=== PATIENT | female | born 1990 | race Caucasian/White ===

== ENCOUNTER 2016-11-27 22:57 | Emergency (ER) | payer BC ==
[~2016-11-27] VITALS: Ht 162.6 cm; Wt 69.4 kg
[2016-11-27 22:59] VITALS: TEMP 37; Ht 162.6 cm; Wt 69.4 kg
[2016-11-27] MEDS ORDERED: BCPILLS PO (23:17)
[2016-11-27] MEDS ORDERED: IBUP-1050 PO (23:18)
--- NOTE | 2016-11-28 00:02 | EMERGENCY ROOM VISIT NOTE ---
History Report prepared by Jeana: Pippa Lopez Under the Supervision of: Dr. Dinesh Sanchez D.O. First contact with patient: 23:03 Chief Complaint: NECK INJURY Stated Complaint: NECK PAIN, MCGOVERN, GYMNASTIC INJURY History of Present Illness The patient is a 26 year old female who presents to the Emergency Room with complaints of an episode of neck injury following a gymnastics class injury that occurred this evening. She rates her pain as a 7/10. The patient was performing a cloth bleaching range back tender spring in gymnastics class. She landed on her head instead of on her hands. The patient describes that she then heard a "crunching " sound. She states that she can tilt side to side but that she has some pain when she tilts her head back. The patient now has a headache. She does not have back pain currently. For the pain, the patient took three Advil 30 minutes ago. The patient denies loss of consciousness, a chance of . The patient states that she is currently on her period. Source of History: patient Onset: this evening Position: neck Symptom Intensity: 7/10 Quality: other (neck pain) Timing: other (episode) Associated Symptoms: + headache, No LOC Review of Systems See HPI for pertinent positives & negatives. A total of 10 systems reviewed and were otherwise negative. Past Medical & Surgical Medical Problems: (1) Asthma Family History No pertinent family history Social History Smoking Status: Never Smoker Alcohol Use: none Drug Use: none Housing Status: lives with family Current/Historical Medications Scheduled Control Pills ( Control Pills), 1 TAB PO DAILY Scheduled PRN Ibuprofen (Advil), 200-600 MG PO Q4H PRN for Pain or Fever Allergies Coded Allergies: No Known Allergies (Unverified , 11/27/16) Physical Exam Vital Signs Date Time Temp Pulse Resp B/P Pulse Ox O2 Delivery O2 Flow Rate FiO2 11/28/16 00:25 66 20 118/72 99 11/27/16 22:59 37.0 79 20 141/100 99 Room Air Physical Exam GENERAL: Patient is awake, alert, and in no acute distress. Patient is resting comfortably and showing no signs of anxiety EYES: The conjunctivae are clear. The pupils are round and reactive. EARS, NOSE, MOUTH AND THROAT: The nose is without any evidence of any deformity. Mucous membranes are moist tongue is midline NECK: There was midline and upper midline cervical spine tenderness to palpation , range of motion was deferred until radiographic studies could be reviewed, no pain with axial compression RESPIRATORY: Normal respiratory effort is noted there is no evidence of wheezing rhonchi or rales CARDIOVASCULAR: Regular rate and rhythm noted there no murmurs rubs or gallops normal S1 normal S2 GASTROINTESTINAL: The abdomen is soft. Bowel sounds are present in all quadrants. Abdomen is nontender BACK: No midline tenderness or or step-off noted range of motion in flexion extension as well as rotation no signs of muscle spasm noted MUSCULOSKELETAL/EXTREMITIES: There is no evidence of gross deformity full range of motion is noted in the hips and shoulders SKIN: There is no obvious evidence of any rash. There are no petechiae, pallor or cyanosis noted. NEUROLOGIC: Patient is awake alert and oriented x3 strength is symmetric patellar reflexes are 2+ bilaterally Medical Decision & Procedures ER Provider Diagnostic Interpretation: X-ray results as stated below per interpretation by me. CT results as stated below per my review and radiologist interpretation. Plain x-rays of the lumbar spine: These reveal no malalignment, no compression fracture, no acute disease. CT the head and cervical spine was obtained in the emergency department. The report was reviewed. Preliminary Findings Only See Final Report For Complete Findings CT HEAD: No evidence of acute intracranial abnormality. CT C SPINE: No acute fracture or traumatic subluxation of the cervical spine. Straightening of the cervical spine which may be related to positioning or muscle spasm. Small disc bulge at C5-6 with mild associated spinal canal narrowing. No evidence of significant neural foraminal stenosis. Radiologist: Cookie Brown MD Study ready at 23:38 and initial results transmitted at 00:01 ED Course 2304: The patient was evaluated in room B. A complete history and physical examination were performed. 0010: Upon reevaluation, the patient is doing well. I discussed the results and treatment plan with the patient. She verbalized agreement of the treatment plan. The patient was discharged home. Medical Decision Differential diagnosis: Etiologies such as fracture, dislocation, intra-abdominal, pneumothorax, intrathoracic , intracranial, neurologic, as well as other traumatic pathologies were entertained. Nursing notes reviewed. The patient is a 26-year-old female who presented to emergency department after a head neck injury. The patient was doing a back spring which is a gymnastics maneuver where she fell backwards putting and axial compression load onto her head into her neck. She also has lumbar spine tenderness. She has no focal neurologic deficit. Gait was normal. The patient's x-rays and CTs did not reveal any acute traumatic injury. The patient did have signs of possible disc protrusion on CT. She was encouraged to rest and avoid any strenuous activity. She was offered pain medication but declined. She was encouraged to continue using Motrin and Tylenol stretcher for pain and follow-up with her primary care physician to discuss the possibility of further studies such as MRI the cervical spine if symptoms do not improve. Otherwise she was encouraged to return to the emergency apartment immediately if symptoms change worsen or the need arises. Impression Primary Impression: Head injury Additional Impressions: Cervical strain Lumbar strain Scribe Attestation The scribe's documentation has been prepared under my direction and personally reviewed by me in its entirety. I confirm that the note above accurately reflects all work, treatment, procedures, and medical decision making performed by me. Departure Information Dispostion Home / Self-Care Referrals No Doctor, Assigned (PCP) Forms HOME CARE DOCUMENTATION FORM, IMPORTANT VISIT INFORMATION, WORK / SCHOOL INSTRUCTIONS Patient Instructions My [facility], Neck Cervical Spine Additional Instructions Family in the morning to schedule a follow-up appointment. Rest and avoid any strenuous activity. Discussed the possibility with your family doctor the may require further studies such as an MRI of the cervical spine to further evaluate any ongoing pain. Continue using Motrin and Tylenol for pain. Problem Qualifiers
[2016-11-28 00:25] VITALS: BP 118/72; PULSE 66; O2SAT 99
--- NOTE | 2016-11-28 06:11 | DIAGNOSTIC IMAGING REPORT ---
HEAD CT NONCONTRAST CT DOSE: HISTORY: Trauma injury TECHNIQUE: Multiaxial CT images of the head were performed without the use of intravenous contrast. Comparison: None. Findings: The paranasal sinuses and mastoid air cells are clear. The calvarium and skull base are intact. The ventricles and sulci are within normal limits. There is no mass, hematoma, midline shift, or acute infarct. Impression: No acute intracranial abnormality. Electronically signed by: Woody Guajardo M.D. 11/28/2016 6:09 AM Dictated Date/Time: 11/28/2016 6:09 AM
--- NOTE | 2016-11-28 06:23 | DIAGNOSTIC IMAGING REPORT ---
LUMBAR SPINE 5 VIEWS HISTORY: Trauma. Pain. fall COMPARISON: None. FINDINGS: There is no fracture. No subluxation. Disc spaces are preserved. IMPRESSION: No fracture or subluxation within the lumbar spine. Electronically signed by: Woody Guajardo M.D. 11/28/2016 6:22 AM Dictated Date/Time: 11/28/2016 6:17 AM
--- NOTE | 2016-11-28 07:22 | DIAGNOSTIC IMAGING REPORT ---
CERVICAL SPINE CT CT DOSE: 934.18 mGy.cm HISTORY: Pain with neck injury TECHNIQUE: Multiaxial CT images of the cervical spine were performed and reformatted in the sagittal and coronal plane without the use of contrast. COMPARISON: None. FINDINGS: No fractures. No subluxation. Prevertebral soft tissues and the C1-C2 interval are intact. No pneumothorax. Small disc bulges at C4-C5 and C5-C6. Straightening of the cervical spine. IMPRESSION: No fractures within the cervical spine. Electronically signed by: Luisito Lao M.D. 11/28/2016 7:21 AM Dictated Date/Time: 11/28/2016 7:17 AM
== END 2016-11-28 00:26 | disposition home or self-care (01) ==
LOC: C.EDB 22:59
DX: S16.1XXA Strain of muscle, fascia and tendon at neck level, initial encounter (principal); J45.909 Unspecified asthma, uncomplicated; X58.XXXA Exposure to other specified factors, initial encounter; Y93.43 Activity, gymnastics; Y99.8 Other external cause status

== ENCOUNTER 2018-03-19 02:49 | Inpatient (IN) | payer OTHER ==
[~2018-03-19] VITALS: Ht 165.1 cm; Wt 72.0 kg
[~2018-03-19 02:49] MED LIST: BCPILLS PO; IBUP-1050 PO
[2018-03-19] MEDS ORDERED: LACTATED RINGER'S 1000ML 1,000 ML IV PRN (03:17)
[2018-03-19 04:15] LABS: HEMATOCRIT 34.9 % (37-47); HEMOGLOBIN 11.8 g/dL (12.0-16.0); MEAN CELL VOLUME 84.5 fL (80-100); MEAN CORPUSCULAR HEMOGLOBIN 28.6 pg (25-34); MEAN CORPUSCULAR HGB CONC 33.8 g/dl (32-36); MEAN PLATELET VOLUME 10.2 fL (7.4-10.4); PLATELET COUNT 234 K/uL (130-400); RED CELL DISTRIBUTION WIDTH CV 13.3 % (11.5-14.5); RED CELL DISTRIBUTION WIDTH SD 40.4 fL (36.4-46.3); WHITE BLOOD COUNT 9.86 K/uL (4.8-10.8)
[2018-03-19] MEDS ORDERED: PRENTAB26 PO (04:35)
[2018-03-19 04:47] VITALS: Ht 165.1 cm; Wt 72.0 kg
[2018-03-19] MEDS ORDERED: BUTORPHANOL TARTRATE 1 MG/ML VIAL IV PRN (07:30)
--- NOTE | 2018-03-19 07:32 | HISTORY & PHYSICAL EXAMINATION ---
DATE OF ADMISSION: 03/19/2018 HISTORY OF PRESENT ILLNESS: The patient is a 28-year-old G1, P0, due date 04/01/2018, making her 38 weeks and 1 day today, who presented to labor and delivery with grossly spontaneous rupture of membranes, fluid was clear. The patient is therefore being admitted for anticipation of delivery. COURSE: Has been unremarkable. LABORATORIES: The patient is rubella immune, HIV negative, GBS negative. RPR nonreactive. PAST MEDICAL HISTORY: 1. Varicella without complication. 2. Exercise-induced asthma. 3. Seasonal allergies. 4. Alopecia. PAST SURGICAL HISTORY: 1. The patient has had dental surgery in the past. 2. Breast reduction. 3. Colonoscopy. ALLERGIES: No known drug allergies. MEDICATIONS: The patient is on vitamins. PHYSICAL EXAMINATION: GENERAL: Well-developed, well-nourished white female, in labor discomfort. HEART: S1, S2, regular rhythm and rate. LUNGS: Clear to auscultation bilaterally. ABDOMEN: Gravid. heart rate is category 1. PELVIC: On admission is 3-4 cm, 50% effaced, and -2. EXTREMITIES: No cyanosis, clubbing or edema. ASSESSMENT AND PLAN: A 28-year-old G1, P0 at 38 weeks and 1, term, premature rupture of membranes. The patient is grossly ruptured. Pelvic ultrasound done at bedside shows cephalic presentation. The patient is GBS negative. The patient is admitted and plan is to expect vaginal delivery. MTDD
[2018-03-19] MEDS ORDERED: FENTANYL CITRATE INJ 50 MCG/1 ML 2 ML VIAL ONE (08:21)
[2018-03-19] MEDS ORDERED: EpHEDrine SULFATE INJ 50 MG/ML AMP ONE (08:21)
[2018-03-19] MEDS ORDERED: BUPIVACAINE 0.25% 30 ML VIAL ONE (08:21)
[2018-03-19] MEDS ORDERED: FENTANYL 2MCG/ML ROPIV 1.25MG/ML 100ML BAG ONE (08:22)
[2018-03-19] MEDS ORDERED: LACTATED RINGER'S 1000ML 500 ML IV PRN ×2 (08:48→10:26)
[2018-03-19] MEDS ORDERED: NALOXONE HCL INJ 1 MG in SODIUM CHLORIDE 0.9% 1000ML 1,000 ML IV PRN (08:48)
[2018-03-19] MEDS: LACTATED RINGER'S 1000ML 1,000 ML IV SCH ×2 (08:58→16:07)
[2018-03-19] MEDS ORDERED: NALBUPHINE HCL INJ 10 MG/ML AMP IV PRN (09:00)
[2018-03-19] MEDS ORDERED: FENTANYL 2MCG/ML ROPIV 1.25MG/ML 100ML BAG EPI PRN (09:00)
[2018-03-19] MEDS ORDERED: DiphenhydrAMINE HCL 50 MG/ML VIAL IV PRN (09:00)
[2018-03-19] MEDS ORDERED: NALOXONE HCL INJ 0.4 MG/1 ML VIAL/CARP IV PRN (09:00)
[2018-03-19] MEDS ORDERED: ONDANSETRON INJ 2 MG/ML 2 ML VIAL IV PRN (09:00)
[2018-03-19] MEDS: EpHEDrine SULFATE INJ 50 MG/ML AMP IV PRN ×2 (09:29→09:38)
[2018-03-19] MEDS ORDERED: OXYTOCIN 30 UNITS/500ML NSS IV PRN ×2 (10:30→19:00)
[2018-03-19] MEDS ORDERED: CEFAZOLIN IV 2,000 MG in DEXTROSE 5% 50ML 50 ML IV STA (17:01)
[2018-03-19] MEDS: CEFAZOLIN IV 2,000 MG in SYRINGE 0 ML IV SCH (17:19)
[2018-03-19] MEDS ORDERED: LACTATED RINGER'S 1000ML 1,000 ML IV SCH (18:51)
[2018-03-19] MEDS ORDERED: SUPERCREAM 0.870 % 15GM JAR EXT PRN (19:00)
[2018-03-19] MEDS ORDERED: MEASLES, MUMPS & RUBELLA VIRUS VIAL SQ. ONE (19:00)
[2018-03-19] MEDS ORDERED: OXYCODONE/ACETAMINOPHEN 5-325 TAB PO PRN ×2 (19:00→22:30)
[2018-03-19] MEDS ORDERED: BENZOCAINE 20% AER SPR 82.5 GM CAN EXT PRN (19:00)
[2018-03-19] MEDS ORDERED: DIPHTHERIA/TETANUS/PERTUSSIS 0.5 ML SYR/VIAL IM. ONE (19:00)
[2018-03-19] MEDS ORDERED: LANOLIN OINT EXT PRN (19:00)
[2018-03-19] MEDS ORDERED: HYDROCORTISONE ACETATE 25 MG SUPP PR PRN (19:00)
[2018-03-19] MEDS ORDERED: ACETAMINOPHEN 325 MG TAB PO PRN (19:00)
--- NOTE | 2018-03-19 19:03 | Anesthesia Procedure Note ---
Anesthesia Epidural Removal Nt Date & Time March 19, 2018 at 19:03 Vital Signs Pain Intensity: 1.0 Notes Mental Status: alert / awake / arousable, participated in evaluation Nausea / Vomiting: adequately controlled Pain: adequately controlled Airway Patency, RR, SpO2: stable & adequate BP & HR: stable & adequate Hydration State: stable & adequate Neuraxial Anesthesia: was administered Anesthetic Complications: no major complications apparent, pt satisfied with anesthetic care Epidural: removed without complications, with tip intact
--- NOTE | 2018-03-19 21:04 | DELIVERY SUMMARY ---
DATE OF OPERATION: 03/19/2018 DATE OF DELIVERY: 03/19/2018. TIME OF DELIVERY OF BABY: 18:16 p.m. TIME OF DELIVERY OF PLACENTA: 18:34 p.m. DETAILS OF DELIVERY: Patient was found to be fully dilated and desired to push. She pushed for about 2 hours and delivered the head without difficulty. Shoulders were delivered with minimal traction. Baby was handed off to the mother where mouth and nose were suctioned. Cord was clamped x2 and cut at 1-minute delay. It was 3 vessels cord and cord blood was obtained. Then the perineum and vagina were checked for lacerations. There was a second-degree vaginal laceration in the posterior vagina involving the perineum. Rectal exam was done, good sphincter tone was noted and gloves were changed. It was confirmed to be a second-degree laceration. The perineal body muscles around the sphincter muscles were held with Allis clamps and reinforced with [id number]-[id number] stitches x2. Then with different 2-0 Vicryl, the vaginal mucosa was repaired in a continuous fashion and the skin in the subcuticular fashion and then rectal exam was done. Excellent sphincter tone was noted and no sutures were felt. Then the placenta was found to be in the vagina, delivered spontaneously intact and complete. Uterus was explored and found to be empty. Lower segment was cleared off all clots and debris. EBL was 300 mL. Pitocin infusion was started and then the vagina and perineum checked again and there was oozing in the middle of the repair in the posterior vagina. It was repaired with qauoop-lo-qajmp stitches x3 and there was a small vaginal laceration on the right vaginal lower wall which was repaired with 3-0 Vicryl with jawuqr-[id number]-nxfaa stitches x3. An excellent hemostasis was achieved. Mom and baby tolerated the procedure well. Baby was a viable male infant, Apgars 8/9, weight was 3636 gr. No complications happened and I was present during the whole procedure. At the end of the procedure, sponge, lap, needle and instrument counts were correct x2. I attest to the content of the Intraoperative Record and any orders documented therein. Any exceptions are noted below. PADDYD
[2018-03-19 21:45] VITALS: BP 104/69; PULSE 83; TEMP 36.9
[2018-03-19] MEDS: IBUPROFEN 600 MG TAB PO PRN (22:33)
[2018-03-20 00:30] VITALS: BP 114/69; PULSE 89; TEMP 36.7
[2018-03-20] MEDS: CEFAZOLIN IV 2,000 MG in SYRINGE 0 ML IV SCH (01:55)
[2018-03-20] MEDS ORDERED: NURSING VERBAL MED ORDER ONE (02:30)
[2018-03-20 05:00] VITALS: BP 96/58; PULSE 81; TEMP 36.8
[2018-03-20] MEDS: IBUPROFEN 600 MG TAB PO PRN ×4 (07:40→23:51)
[2018-03-20 08:00] VITALS: BP 94/63; PULSE 86; TEMP 36.7; O2SAT 98
[2018-03-20] MEDS: DOCUSATE SODIUM 100 MG CAP PO SCH ×3 (08:24→19:53)
[2018-03-20] MEDS: FERROUS SULFATE 325 MG TAB PO SCH (08:25)
[2018-03-20] MEDS: PRENATAL VITAMIN TAB PO SCH (08:25)
--- NOTE | 2018-03-20 10:39 | OB/GYN Progress Note ---
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 Subjective conversation w/ patient, physical exam Ambulation: ambulating normally Voiding: no voiding problems Passing Gas: Yes Diet Tolerance: Regular Diet Lochia: Moderate Feeding Type: Breast Feeding Review of Systems Constitutional: No fever, No chills, No sweats, No weight loss, No weakness, No fatigue, No problem reported Respiratory: No cough, No sputum, No wheezing, No shortness of breath, No dyspnea on exertion, No dyspnea at rest, No hemoptysis, No problem reported Cardiac: No chest pain, No orthopnea, No PND, No edema, No claudication, No palpitations, No problem reported Breast: No see HPI, No breast lump, No change in shape, No nipple discharge, No breast pain, No problem reported Abdomen: No pain, No nausea, No vomiting, No diarrhea, No constipation, No GI bleeding, No problem reported Female : No see HPI, No dysuria, No urinary frequency, No hematuria, No incontinence, No abnormal vaginal bleeding, No vaginal discharge, No problem reported Objective Vital Signs Date Time Temp Pulse Resp B/P (MAP) Pulse Ox O2 Delivery O2 Flow Rate FiO2 03/20/18 08:00 36.7 86 18 94/63 (73) 98 Room Air 03/20/18 07:30 Room Air 03/20/18 05:00 36.8 81 18 96/58 (71) Room Air 03/20/18 00:30 36.7 89 18 114/69 (84) Room Air 03/20/18 00:30 Room Air 03/19/18 21:45 36.9 83 18 104/69 (81) Room Air 03/19/18 21:45 Room Air Physical Exam General Appearance: WELL-APPEARING, WD/WN, NO APPARENT DISTRESS Respiratory/Chest: chest non-tender, lungs clear, normal breath sounds Cardiovascular: regular rate, rhythm, no edema, no gallop Abdomen: normal bowel sounds, non tender Fundus: Firm Incision Description: Clean, Dry & Intact Extremities: normal range of motion, non-tender, normal inspection Laboratory Results Last 24 Hours Test 03/20/18 06:53 Hemoglobin 9.0 g/dL Hematocrit 27.0 % Assessment and Plan Continue Routine Care: Post op day #1 doing well No complaints anticipate disch tomorrow
[2018-03-20 12:00] VITALS: BP 112/79; PULSE 89; TEMP 36.7
[2018-03-20 16:20] VITALS: BP 104/69; PULSE 70; TEMP 36.7
[2018-03-20] MEDS ORDERED: BISACODYL 5 MG TABEC PO SCH (20:00)
[2018-03-20 23:20] VITALS: BP 99/65; PULSE 71; TEMP 36.8; O2SAT 98
[2018-03-21 03:10] VITALS: BP 103/76; PULSE 76; TEMP 36.9
[2018-03-21 05:45] LABS: HEMATOCRIT 26.2 % (37-47); HEMOGLOBIN 8.5 g/dL (12.0-16.0); MEAN CELL VOLUME 86.8 fL (80-100); MEAN CORPUSCULAR HEMOGLOBIN 28.1 pg (25-34); MEAN CORPUSCULAR HGB CONC 32.4 g/dl (32-36); MEAN PLATELET VOLUME 10.4 fL (7.4-10.4); PLATELET COUNT 196 K/uL (130-400); RED CELL DISTRIBUTION WIDTH CV 13.8 % (11.5-14.5); RED CELL DISTRIBUTION WIDTH SD 43.8 fL (36.4-46.3); WHITE BLOOD COUNT 10.67 K/uL (4.8-10.8)
[2018-03-21] MEDS: DOCUSATE SODIUM 100 MG CAP PO SCH (08:27)
[2018-03-21] MEDS: IBUPROFEN 600 MG TAB PO PRN (08:28)
[2018-03-21] MEDS: FERROUS SULFATE 325 MG TAB PO SCH (08:28)
[2018-03-21] MEDS: PRENATAL VITAMIN TAB PO SCH (08:28)
[2018-03-21 08:30] VITALS: BP 99/65; PULSE 72; TEMP 36.6; O2SAT 97
[2018-03-21] MEDS ORDERED: MTR600X PO (08:54)
[2018-03-21] MEDS ORDERED: MISC-1040 (09:36)
--- NOTE | 2018-03-21 09:37 | OB/GYN Progress Note ---
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 Subjective conversation w/ patient, conversation w/ family, physical exam Ambulation: ambulating normally Passing Gas: Yes Diet Tolerance: Regular Diet Lochia: Small Feeding Type: Breast Feeding Objective Vital Signs Date Time Temp Pulse Resp B/P (MAP) Pulse Ox O2 Delivery O2 Flow Rate FiO2 03/21/18 03:10 36.9 76 18 103/76 (85) Room Air 03/20/18 23:20 98 Room Air 03/20/18 23:20 36.8 71 18 99/65 (76) 98 Room Air 03/20/18 16:20 Room Air 03/20/18 16:20 36.7 70 18 104/69 (81) Room Air 03/20/18 12:00 36.7 89 18 112/79 (90) Room Air Physical Exam General Appearance: WELL-APPEARING, NO APPARENT DISTRESS Abdomen: normal bowel sounds, non tender, soft, no organomegaly Fundus: Firm Extremities: non-tender, normal inspection Laboratory Results Last 24 Hours Test 03/21/18 05:23 White Blood Count 10.67 K/uL Red Blood Count 3.02 M/uL Hemoglobin 8.5 g/dL Hematocrit 26.2 % Mean Corpuscular Volume 86.8 fL Mean Corpuscular Hemoglobin 28.1 pg Mean Corpuscular Hemoglobin Concent 32.4 g/dl RDW Standard Deviation 43.8 fL RDW Coefficient of Variation 13.8 % Platelet Count 196 K/uL Mean Platelet Volume 10.4 fL Assessment and Plan Post- Day Number: 2 Continue Routine Care: discharged
[2018-03-21 12:50] VITALS: BP_DIAS 65; PULSE 72; TEMP 36.6
== END 2018-03-21 13:50 | disposition home or self-care (01) | DRG 775 ==
LOC: C.OPB 02:49 → C.LD 02:49 → C.OPB 03:22 → C.LD 03:22 → C.OBG 03-20 02:23 → EDSTATUS 04-01 02:48
PROVIDERS: ADMIT Obstetrics & Gynecology; ATTEND Obstetrics & Gynecology
PROC: 0KQM0ZZ Repair Perineum Muscle, Open Approach (ICD-10-PCS; principal; 2018-03-19)
PROC: 10E0XZZ Delivery of Products of Conception, External Approach (ICD-10-PCS; principal; 2018-03-19)
DX: O70.1 Second degree perineal laceration during delivery (principal); Z37.0 Single live birth; Z3A.38 38 weeks gestation of pregnancy

== ENCOUNTER 2020-06-04 12:34 | Inpatient (IN) ==
[2020-06-04] MEDS ORDERED: OXYTOCIN 30 UNITS/500ML NSS ONE (12:50)
[2020-06-04] MEDS ORDERED: OXYTOCIN 30 UNITS/500 ML BAG IV PRN ×2 (12:53→14:35)
[2020-06-04] MEDS ORDERED: LACTATED RINGER'S 1,000 ML IV PRN (12:53)
--- NOTE | 2020-06-04 13:03 | Obstetrical Progress Note ---
Date of Service June 04, 2020 Assessment & Plan Admission and Anticipated Discharge Date Admission Date: June 04, 2020 Physical Exam Physical Exam: Admit Note 30 F P1001 at 39 weeks admitted in active labor. Patient fully dilated with bulging menbranes. FHT Cat 1 with regular ctx every 3 minutes. GBS is negative. Covid is negative. Anticipate delivery shortly. Results & Data ([facility]) Vital Signs (Past 12 Hours) Vital Signs Temp Pulse Resp BP 06/04/20 12:57 36.4 C L 86 16 112/65
[2020-06-04 13:15] LABS: Hematocrit (blood only) 39.4 % (37-47); Hemoglobin 13.6 g/dL (12.0-16.0); Mean Platelet Volume 10.6 fL (7.4-10.4); Platelet Count 237 K/uL (130-400); RDW Coefficient of Variation 13.6 % (11.5-14.5); RDW Standard Deviation 43.4 fL (36.4-46.3); Red Blood Count 4.53 M/uL (4.2-5.4); White Blood Count 14.45 K/uL (4.8-10.8)
--- NOTE | 2020-06-04 13:16 | Obstetrical Progress Note ---
Date of Service June 04, 2020 Assessment & Plan Admission and Anticipated Discharge Date Admission Date: June 04, 2020 Results & Data ([facility]) Vital Signs (Past 12 Hours) Vital Signs Temp Pulse Resp BP 06/04/20 12:57 36.4 C L 86 16 112/65
--- NOTE | 2020-06-04 13:17 | Obstetrical Progress Note ---
Date of Service June 04, 2020 Assessment & Plan Admission and Anticipated Discharge Date Admission Date: June 04, 2020 Physical Exam Genitourinary: Manual OB Exam: + cervical dilation 9 cm, + cervical effacement 100%, + station 0 and + amniotic fluid OB Exam Monitor Tracing: + external FHT monitor used, + external uterine monitor used, + category I and + normal FHT variability AROM with amni-hook clear fluid Results & Data ([facility]) Vital Signs (Past 12 Hours) Vital Signs Temp Pulse Resp BP 06/04/20 12:57 36.4 C L 86 16 112/65
[2020-06-04 13:20] LABS: Mean Corpuscular Hgb Conc 34.5 g/dL (32-36)
[2020-06-04] MEDS ORDERED: BUTORPHANOL TARTRATE 1 MG/ML VIAL ONE (13:29)
[2020-06-04] MEDS ORDERED: IBUPROFEN 600 MG TAB PO ONE (13:31)
--- NOTE | 2020-06-04 13:40 | Delivery Summary ---
Vaginal Delivery Summary Date of Service June 04, 2020 Supervising Physician Co-Signing Physician Notes Delivery Note Live female NACHO over intact perineum with delayed cord clamping and nuchal cord x1 reduced at delivery. Apgars 8/9 weight pending. Cord blood obtained followed by spontaneous delivery of intact placenta. No tears. Final sponge and instrument count are correct. EBL 100 ml. Mom and baby stable.
[2020-06-04] MEDS ORDERED: DIPHTHERIA/TETANUS/PERTUSSIS 0.5 ML SYR/VIAL IM ONE (14:35)
[2020-06-04] MEDS ORDERED: BENZOCAINE 20% AER SPR 82.5 GM CAN EXT PRN (14:35)
[2020-06-04] MEDS ORDERED: bisacodyL 10 MG SUPP PR PRN (14:35)
[2020-06-04] MEDS ORDERED: ACETAMINOPHEN 325 MG TAB PO PRN (14:35)
[2020-06-04] MEDS ORDERED: HYDROCORTISONE ACETATE 25 MG SUPP PR PRN (14:35)
[2020-06-04] MEDS ORDERED: SUPERCREAM 0.870% 15 GM JAR EXT PRN (14:35)
[2020-06-04] MEDS ORDERED: DOCUSATE SODIUM 100 MG CAP PO ONE (19:33)
[2020-06-04] MEDS: IBUPROFEN 600 MG TAB PO PRN ×2 (19:35→23:55)
[2020-06-04] MEDS: DOCUSATE SODIUM 100 MG CAP PO SCH (19:36)
[2020-06-05 07:01] LABS: Hematocrit (blood only) 37.1 % (37-47); Hemoglobin 12.1 g/dL (12.0-16.0); Mean Corpuscular Hemoglobin 29.5 pg (25-34); Mean Corpuscular Hgb Conc 32.6 g/dL (32-36); Mean Corpuscular Volume 90.5 fL (80-100); Mean Platelet Volume 10.9 fL (7.4-10.4); Platelet Count 217 K/uL (130-400); RDW Standard Deviation 46.6 fL (36.4-46.3); White Blood Count 14.34 K/uL (4.8-10.8)
[2020-06-05] MEDS: IBUPROFEN 600 MG TAB PO PRN (07:42)
[2020-06-05] MEDS: DOCUSATE SODIUM 100 MG CAP PO SCH (07:43)
[2020-06-05] MEDS ORDERED: PRENATAL VITAMIN 1 TAB PO SCH (08:00)
[2020-06-05] MEDS ORDERED: FERROUS SULFATE 325 MG TAB PO SCH (08:00)
[2020-06-05] MEDS ORDERED: NON-FORMULARY MEDICATION (Prenat.Vits,Cal,Min-Iron-Folic 1 TAB) PO SCH (09:00)
--- NOTE | 2020-06-05 11:05 | Obstetrical Progress Note ---
Date of Service June 05, 2020 Assessment & Plan Admission and Anticipated Discharge Date Admission Date: June 04, 2020 Physical Exam Physical Exam: PPD#1 doing well plans to home OOB una diet passing gas fundus firm no edema neg Pascual's for d/c today Results & Data ([facility]) Vital Signs (Past 12 Hours) Vital Signs Temp Pulse Pulse Pulse Resp BP Pulse Ox 06/05/20 07:20 36.7 C 71 18 100/64 99 06/05/20 03:25 36.8 C 60 18 110/70 99 06/04/20 23:20 36.8 C 62 18 105/69 99 Laboratory Results Laboratory Results - last 72 hr 06/04/20 06/05/20 13:01 06:37 WBC 14.45 H 14.34 H RBC 4.53 4.10 L Hgb 13.6 12.1 Hct 39.4 37.1 MCV 87.0 90.5 MCH 30.0 29.5 MCHC 34.5 32.6 RDW Std Deviation 43.4 46.6 H RDW Coeff of Denise 13.6 14.0 Plt Count 237 217 MPV 10.6 H 10.9 H
[2020-06-05 13:46] VITALS: BP 95/62; PULSE 74; TEMP 98.2; O2SAT 98
[2020-06-05] MEDS ORDERED: bisacodyL 5 MG TABEC PO SCH (20:00)
== END 2020-06-05 14:46 | disposition home or self-care (01) | DRG 807 ==
LOC: OPB 12:34 → 4S1 12:34 → 4S2 17:17

== ENCOUNTER 2023-06-06 02:29 | Inpatient (IN) ==
[2023-06-06] MEDS ORDERED: OXYTOCIN 30 UNITS/500 ML BAG IV PRN ×2 (03:22→06:49)
[2023-06-06] MEDS ORDERED: LIDOCAINE 1% LOCAL 20 ML VIAL INFIL PRN (03:22)
[2023-06-06] MEDS ORDERED: LACTATED RINGER'S 1,000 ML IV PRN (03:22)
--- NOTE | 2023-06-06 03:27 | History & Physical Report ---
Date of Service June 06, 2023 Assessment & Plan (1) 39 weeks gestation of : Plan: Admit, routine labs Will augment with oxytocin if patient makes no cervical change on her own Epidural patient request Anticipate spontaneous vaginal delivery (2) AMA (advanced maternal age) multigravida 35+: (3) Asthma: History of Present Illness Chief Complaint: LOF, labor Primary Care Provider: Catalina Aggarwal DO Patient is a 33-year-old -0-2-2 at 39 weeks and 1 day who presents to labor and delivery with rupture of membranes at 1 AM. States rupture was clear, and is having contractions every 5 minutes. Denies vaginal bleeding. Notes good movement. Denies headache, blurry vision, right upper quadrant epigastric pain. Otherwise feeling well. has been complicated by AMA, asthma, GBS was negative Allergies Allergy/AdvReac Type Severity Reaction Status Date / Time No Known Allergies Allergy Verified 05/19/20 13:31 Home Medications Medication Instructions Recorded Confirmed Type prenat.vits,daniel,xec-ywrf-xhrxp 1 tab PO DAILY 11/09/19 06/06/23 History Patient History Medical History History of varicella Surgical History H/O breast surgery S/P wisdom tooth extraction Family History Grandfather (Paternal) Diabetes Heart disease Dyslipidemia Social History Smoking Status: Never smoker Second Hand Exposure: No; Do You Dip or Chew Tobacco: No; Hx Alcohol Use: No Hx Substance Use: No Preferred Language: Kosovan Communication Ability: Effective Maintenance Construction 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 History See record Review of Systems All systems reviewed & are unremarkable except as noted in HPI & below Physical Exam Constitutional: WD/WN, vitals as above Respiratory: normal respiratory effort, lungs clear to auscultation Cardiovascular: RRR, no murmur, no edema Gastrointestinal (Abdomen): normal bowel sounds, soft, nontender, no hepatosplenomegaly gravid Genitourinary: External genitalia: Normal Grossly ruptured Vagina: Normal Cervix: 4/50/-3 cephalic Results & Data Vital Signs (Past 12 Hours) Vital Signs Pulse Resp BP 06/06/23 03:19 63 113/70 06/06/23 02:54 18 Code Status & VTE Plan VTE Prophylaxis Plan VTE Prophylaxis will be ordered: No Monitoring External Monitor heart tracing: Baseline 11/27/1936, moderate variability, positive accelerations no decelerations Tocodynamometer Contractions every 5 to 6 minutes
[2023-06-06 04:00] LABS: Hematocrit (blood only) 37.5 % (37.0-47.0); Hemoglobin 13.2 g/dl (12.0-16.0); Mean Corpuscular Hemoglobin 32.2 pg (25.0-34.0); Mean Corpuscular Hgb Conc 35.2 g/dL (32.0-36.0); Mean Corpuscular Volume 91.5 fL (80.0-100.0); Mean Platelet Volume 11.2 fL (9.4-12.4); Platelet Count 182 K/uL (130-400); RDW Coefficient of Variation 12.6 % (11.5-14.5); RDW Standard Deviation 41.4 fL (36.4-46.3); White Blood Count 10.08 K/ul (4.8-10.8)
[2023-06-06] MEDS ORDERED: BENZOCAINE 20% SPRY 85 APPLN/85 GM CAN EXT PRN (06:49)
[2023-06-06] MEDS ORDERED: bisacodyL 10 MG SUPP PR PRN (06:49)
[2023-06-06] MEDS ORDERED: DIPHTHERIA/TETANUS/PERTUSSIS Vaccine (Tdap, Age 7+yrs) 0.5mL SYR/VL IM ONE (06:49)
[2023-06-06] MEDS ORDERED: ACETAMINOPHEN 325 MG TAB PO PRN (06:49)
[2023-06-06] MEDS ORDERED: HYDROCORTISONE ACETATE 25 MG SUPP PR PRN (06:49)
--- NOTE | 2023-06-06 06:55 | Delivery Summary ---
Vaginal Delivery Summary Date of Service June 06, 2023 Vaginal Delivery Summary Delivery Note History synopsis: Patient is a 33-year-old -0-2-2 admitted at 39 weeks for SROM with labor, was admitted at 4 cm dilated. She called out to nursing complaining like she had to push, and I was called for delivery Delivery Summary: When I arrived the head was , nuchal x 1, head was was delivered atraumatically followed by the anterior shoulders, posterior shoulders then the remainder of the infants body. The was immediately placed on mother's abdomen, dried and stimulated. At this point patient states she wants delayed cord clamping, I explained over 1 minute of delayed cord clamping has no additional benefit. Delayed cord clamping for 120 seconds was performed. The infants mouth and nose were bulb suctioned by nursing staff. A female infant was delivered at 0620, weight pending, with APGARS of 8 at 1 minute and 9 at 5 minutes. The infant was handed off to the awaiting nursing staff and baby was brought over to warmer and given oxygen as baby was blue at this time. Patient was then placed in dorsal lithotomy position, and draped in the usual manner. Patient was adamant at this time that she did not want Pitocin given to her unless she was having ongoing bleeding. She was also adamant about not having active management of third stage of labor with delivery of the placenta. Explained that evidence-based research, with active management of this third stage of labor including delivery of the placenta. At this point patient was agreeable and declined IV medication. Cord blood gases were not obtained. The placenta delivered intact with three vessel cord without complication.. Placenta was sent to pathology. At this point there was noted to be ongoing uterine atony, and patient was agreeable to receive IV Pitocin. Thirty units of Pitocin were added to the IV fluid and allowed to run freely. Uterine massage was performed until uterus was deemed firm. Upon inspection of the perineum, cervix were intact. Second-degree degree laceration was noted, local 1% lidocaine was injected into the area, and patient declined additional IV medication. The second-degree laceration was repaired with 3-0 Vicryl in the usual fashion. No additional lacerations were noted. Upon re-inspection the patient was hemostatic. Uterus again massaged and found to be firm. Needle and sponge counts were correct. Patient was stable and allowed to recover in L&D room. was stable and remained in room with mother in the labor and delivery unit. EBL 600
[2023-06-06] MEDS: IBUPROFEN 600 MG TAB PO PRN ×4 (07:10→21:22)
[2023-06-06] MEDS: DOCUSATE SODIUM 100 MG CAP PO SCH ×2 (09:01→21:21)
[2023-06-06] MEDS: PRENATAL VITAMIN 1 TAB PO SCH (09:01)
[2023-06-07 06:42] LABS: Hematocrit (blood only) 33.8 % (37.0-47.0); Hemoglobin 11.4 g/dl (12.0-16.0); Mean Corpuscular Hemoglobin 32.1 pg (25.0-34.0); Mean Corpuscular Hgb Conc 33.7 g/dL (32.0-36.0); Mean Corpuscular Volume 95.2 fL (80.0-100.0); Mean Platelet Volume 11.4 fL (9.4-12.4); Platelet Count 166 K/uL (130-400); RDW Standard Deviation 45.1 fL (36.4-46.3); Red Blood Count 3.55 M/uL (4.20-5.40)
--- NOTE | 2023-06-07 06:59 | Obstetrical Progress Note ---
Date of Service June 07, 2023 Assessment & Plan (1) Normal course: Plan Discharge plan today Follow up in the office in 3 weeks and 6 weeks for care continue PNV and [id number] Subjective Ambulation: ambulating normally Review of Systems All systems reviewed & are unremarkable except as noted in HPI & below Pt desires to be discharged home. Physical Exam Constitutional WD/WN, vitals as above Respiratory normal respiratory effort, lungs clear to auscultation Cardiovascular RRR, no murmur, no edema Gastrointestinal (Abdomen) normal bowel sounds, soft, nontender, no hepatosplenomegaly Skin no rashes, warm and dry Genitourinary Deferred . Denies heavy vaginal bleeding, vaginal pain etc. Normal lochia Results & Data Vital Signs (Past 12 Hours) Vital Signs Temp Pulse Resp BP Pulse Ox O2 Del Method 06/07/23 03:59 36.9 C 89 20 115/75 97 Room Air 06/06/23 23:40 36.7 C 57 L 18 102/67 97 Room Air 06/06/23 20:30 Room Air 06/06/23 20:30 36.6 C 71 20 107/70 99 Room Air Supervising Physician Co-Signing Physician Notes Dr. Jenny Alberts MD
[2023-06-07] MEDS: DOCUSATE SODIUM 100 MG CAP PO SCH (08:26)
[2023-06-07] MEDS: IBUPROFEN 600 MG TAB PO PRN (08:26)
[2023-06-07] MEDS: PRENATAL VITAMIN 1 TAB PO SCH (08:26)
[2023-06-07] MEDS ORDERED: bisacodyL 5 MG TABEC PO SCH (20:00)
== END 2023-06-07 11:15 | disposition home or self-care (01) | DRG 807 ==
LOC: OPB 02:29 → 4S1 02:33 → 4E2 09:45

== ENCOUNTER 2025-04-27 10:20 | Inpatient (IN) ==
[2025-04-27] MEDS ORDERED: LIDOCAINE 1% LOCAL 20 ML VIAL INFIL PRN (12:44)
[2025-04-27] MEDS ORDERED: OXYTOCIN 30 UNITS/NSS 30 UNITS/500 ML BAG IV PRN ×2 (12:44→23:52)
--- NOTE | 2025-04-27 13:01 | Obstetrical Progress Note ---
Date of Service April 27, 2025 Assessment & Plan (1) : Plan: Patient presented 35-year-old G4, P3 at 37+ weeks presents with spontaneous rupture of membranes at 06:30 on 04/27/2025 she reports fluid was clear. On arrival to L&D, she has no shortness of breath no chills no fever grossly ROM. Bedside ultrasound shows fetus is in cephalic presentation. heart rate is category 1 Contractions every 10 minutes apart. VE; ft/50%/high. EFW by ginny salamancabs Discussed with patient that she has been ruptured over 4 hours and offered her Pitocin augmentation. Patient declines Pitocin augmentation we discussed risk of infection for prolonged rupture of membranes. Patient and her spouse are not interested in any augmentation or intervention. She denies epidural analgesia for labor as well. Patient reports she is unhappy with last 2 providers who delivered her baby because she felt quotation 'rushed' Patient is admitted last admission labs are ordered. Will wait for patient to decide what to do next at the moment plan is expectant management. Results & Data Vital Signs (Past 12 Hours) Vital Signs Temp Pulse Resp BP 04/27/25 11:40 36.9 C 04/27/25 11:05 36.7 C 90 18 76 04/27/25 10:37 90 111/76 04/27/25 10:35 18 04/27/25 10:35 36.9 C 18
[2025-04-27 13:31] LABS: Hematocrit (blood only) 36.8 % (37.0-47.0); Hemoglobin 12.4 g/dl (12.0-16.0); Mean Corpuscular Hemoglobin 30.3 pg (25.0-34.0); Mean Corpuscular Volume 90.0 fL (80.0-100.0); Platelet Count 189 K/uL (130-400); RDW Standard Deviation 43.8 fL (36.4-46.3); Red Blood Count 4.09 M/uL (4.20-5.40); White Blood Count 10.26 K/ul (4.8-10.8)
--- NOTE | 2025-04-27 18:47 | Obstetrical Progress Note ---
Date of Service April 27, 2025 Assessment & Plan (1) : Plan: Pt now agreeable to Pitocin augmentation FHR; CAT1 Ctx Minimal and irregular Discussed Pitocin risk and benefits Admission and Anticipated Discharge Date Admission Date: April 27, 2025 Results & Data Vital Signs (Past 12 Hours) Vital Signs Temp Pulse Resp BP 04/27/25 16:50 18 04/27/25 16:50 36.7 C 18 04/27/25 15:53 18 04/27/25 15:53 36.9 C 18 04/27/25 15:53 81 04/27/25 15:53 101/63 04/27/25 14:35 18 04/27/25 14:35 37.0 C 18 04/27/25 13:00 18 04/27/25 13:00 37.0 C 18 04/27/25 11:40 36.9 C 04/27/25 11:05 36.7 C 90 18 111/76 04/27/25 10:37 90 111/76 04/27/25 10:35 18 04/27/25 10:35 36.9 C 18
[2025-04-27] MEDS: LACTATED RINGER'S 1,000 ML IV PRN (19:08)
[2025-04-27] MEDS: OXYTOCIN 30 UNITS/NSS 30 UNITS/500 ML BAG IV PRN (19:10)
[2025-04-27] MEDS ORDERED: HYDROCORTISONE ACETATE 25 MG SUPP PR PRN (23:52)
[2025-04-27] MEDS ORDERED: DIPHTHER/TETAN/PERTUS Vaccine (Tdap, Adol/Adult) 0.5mL IM ONE (23:52)
[2025-04-27] MEDS ORDERED: ACETAMINOPHEN 325 MG TAB PO PRN (23:52)
--- NOTE | 2025-04-27 23:52 | Delivery Summary ---
Vaginal Delivery Summary Date of Service April 27, 2025 Vaginal Delivery Summary DELIVERY NOTE Patient delivered a live infant in left occiput anterior presentation there was loose nuchal cord which was easily reduced. was delivered and placed on mother's abdomen. Delayed cord clamping was performed. Cord blood is obtained Cord gasses are obtained Meconium is absent Placenta is spontaneously delivered. Placenta appears grossly normal and has 3 vessel cord Inspection of the perineum showed a second-degree midline laceration. Laceration is repaired in layers with 2-0 Vicryl in layers after lidocaine is injected into laceration rectal exam is deferred. Pt has no analgesia on board iand is very uncomfortable . Quantitative blood loss is 75 cc per Infants weight and scores are in the pediatric record Mother and baby are stable in in the recovery
[2025-04-28 00:31] LABS: Base Excess Cord Arterial Bld -3.2 mEq/L (-9-1.8); Base Excess Cord Venous Blood -1.5 mEq/L (-7.7-1.9); CO2 Cord Arterial Blood 28 mmHg (39.1-73.5); Cord Venous Blood PO2 30 mmHg (14.1-43.3); HCO3 Cord Arterial Blood 20 mmol/L (19.7-28.5); O2 Saturation Cord Venous Bld 72.6 % (<68); Oxygen Sat Cord Arterial Blood 86.5 % (<60); PO2 Cord Arterial Blood 38 mmHg (4.1-31.7); pH Cord Arterial Blood 7.45 (7.1-7.38)
[2025-04-28] MEDS: BENZOCAINE 20% SPRY 85 APPLN/85 GM CAN EXT PRN (00:33)
[2025-04-28] MEDS: IBUPROFEN 600 MG TAB PO PRN (00:33)
[2025-04-28 06:26] LABS: Hematocrit (blood only) 34.9 % (37.0-47.0); Hemoglobin 12.0 g/dl (12.0-16.0); Mean Corpuscular Hemoglobin 31.3 pg (25.0-34.0); Mean Corpuscular Volume 91.1 fL (80.0-100.0); Platelet Count 192 K/uL (130-400); RDW Standard Deviation 43.3 fL (36.4-46.3); Red Blood Count 3.83 M/uL (4.20-5.40); White Blood Count 15.22 K/ul (4.8-10.8)
[2025-04-28] MEDS: PRENATAL VITAMIN 1 TAB PO SCH (07:47)
[2025-04-28] MEDS: DOCUSATE SODIUM 100 MG CAP PO SCH (07:47)
--- NOTE | 2025-04-28 07:47 | Obstetrical Progress Note ---
Date of Service April 28, 2025 Assessment & Plan (1) Normal course: Post day #1 Vaginal delivery Pt doing well No complaints Stable vitals Stable labs. H/H: 12.3/36 Tolerating PO food and med Pt wishes to be discharged home Subjective Ambulation: ambulating normally Voiding: no voiding problems Passing Gas:: Yes Diet Tolerance:: regular diet Lochia:: Small Feeding Type:: breast feeding Review of Systems All systems reviewed & are unremarkable except as noted in HPI & below Physical Exam Constitutional WD/WN, vitals as above well developed and well nourished Eyes PERRL, conjunctivae normal, anicteric sclerae Neck trachea midline, no thyromegaly Respiratory normal respiratory effort, lungs clear to auscultation Auscultation: no crackles, no rales and no wheezes Cardiovascular RRR, no murmur, no edema Gastrointestinal (Abdomen) normal bowel sounds, soft, nontender, no hepatosplenomegaly Uterus is below umbilicus Musculoskeletal no cyanosis or clubbing, extremities motor strength 5/5 Skin no rashes, warm and dry Neurologic patellar DTR's 2+ bilat, sensation intact Psychiatric A+Ox3, euthymic affect Genitourinary normal external appearance Results & Data Vital Signs (Past 12 Hours) Vital Signs Temp Pulse Pulse Resp BP BP 04/28/25 03:00 36.8 C 73 18 94/61 L 04/28/25 01:49 36.8 C 04/28/25 00:03 68 108/75 04/27/25 23:49 57 L 04/27/25 23:49 117/68 04/27/25 23:22 76 04/27/25 23:22 118/58 L 04/27/25 22:46 138/78 04/27/25 21:36 16 04/27/25 21:36 36.8 C 16 04/27/25 21:36 65 04/27/25 21:36 118/69
--- NOTE | 2025-04-28 09:25 | Obstetrical Progress Note ---
Date of Service April 28, 2025 Assessment & Plan Admission and Anticipated Discharge Date Admission Date: April 27, 2025 Subjective abdomen soft and non tender no calf tenderness ambulating well vaginal bleeding scant hgb 12 Results & Data Vital Signs (Past 12 Hours) Vital Signs Temp Pulse Pulse Resp BP BP Pulse Ox 04/28/25 08:22 36.8 C 61 14 98/64 L 97 04/28/25 03:00 36.8 C 73 18 94/61 L 04/28/25 01:49 36.8 C 04/28/25 00:03 68 108/75 04/27/25 23:49 57 L 04/27/25 23:49 117/68 04/27/25 23:22 76 04/27/25 23:22 118/58 L 04/27/25 22:46 138/78 04/27/25 21:36 16 04/27/25 21:36 36.8 C 16 04/27/25 21:36 65 04/27/25 21:36 118/69 O2 Del Method 04/28/25 08:22 Room Air 04/28/25 03:00 04/28/25 01:49 04/28/25 00:03 04/27/25 23:49 04/27/25 23:49 04/27/25 23:22 04/27/25 23:22 04/27/25 22:46 04/27/25 21:36 04/27/25 21:36 04/27/25 21:36 04/27/25 21:36
[2025-04-28 15:35] VITALS: O2SAT 99
[2025-04-28 19:36] VITALS: RESP 16
[2025-04-29 06:24] LABS: Hematocrit (blood only) 34.1 % (37.0-47.0); Hemoglobin 11.1 g/dl (12.0-16.0)
[2025-04-29 11:26] VITALS: BP 100/68; PULSE 61; TEMP 98.4
== END 2025-04-29 11:29 | disposition home or self-care (01) | DRG 807 ==
LOC: OPB 10:20 → 4S1 10:22 → 4E2 04-28 03:07